=== PATIENT | male | born 1935 | race Caucasian/White ===

== ENCOUNTER 2023-12-18 11:38 | Day surgery (SDC) | payer OTHER ==
[~2023-12-18] VITALS: Ht 172.7 cm; Wt 73.5 kg
[2023-12-18] VITALS (13 sets, daily range): BP systolic 108–157; BP diastolic 68–93; PULSE 55–66; RESP 14–16; TEMP 98.5; O2SAT 97–98
[2023-12-18] MEDS ORDERED: ROSU40TA71 PO (12:11)
[2023-12-18] MEDS ORDERED: FINA5TAB11 PO (12:11)
[2023-12-18] MEDS ORDERED: LOSA-415 PO (12:11)
[2023-12-18] MEDS ORDERED: AMLO2.5T2 PO (12:11)
[2023-12-18] MEDS ORDERED: APIX5TAB3 PO (12:11)
[2023-12-18] MEDS ORDERED: FLO0.4C PO (12:11)
[2023-12-18] MEDS ORDERED: EZET10TA6 PO (12:11)
[2023-12-18] MEDS: normal saline 1000ml 1,000 ML IV SCH (13:25)
[2023-12-18] MEDS: fentaNYL/PF 50MCG/1 ML 2ML syringe IV ONE (13:26)
[2023-12-18] MEDS: MIDAZolam 1mg/ml 10ml vial IV ONE (13:26)
== END 2023-12-18 14:35 | disposition home or self-care (01) ==
LOC: SSTAY O 11:38
PROVIDERS: ATTEND Student in an Organized Health Care Education/Training Program
DX: I63.40 Cerebral infarction due to embolism of unspecified cerebral artery (principal); I48.91 Unspecified atrial fibrillation; Z79.01 Long term (current) use of anticoagulants; Z79.899 Other long term (current) drug therapy
CPT/HCPCS: 76376; 93312; 93325; 94760; J2250; J3010; J7030; A6213; A6449